=== PATIENT | female | born 1995 ===

== ENCOUNTER 2017-12-14 03:10 | Inpatient (IN) | payer MEDICAID, SELFPAY ==
--- NOTE | 2017-12-14 04:10 | ED PDOC ---
HPI: Abdomen Time Seen by Provider: 12/14/17 03:21 Chief Complaint (Nursing): Abdominal Pain Chief Complaint (Provider): Flank pain History Per: Patient Additional Complaint(s): Pt is a 22 yo female, no PMH, presents to ED ~6 w by dates, LMP 10/25, ambulated to ER for evaluation of tactile fever and left flank pain - onset at 22:00. Pt denies burning on urination, hematuria or increased frequency. Past Medical History Reviewed: Nursing Documentation, Vital Signs Vital Signs: Last Vital Signs Temp 99.8 F H 12/14/17 03:36 Pulse 95 H 12/14/17 03:36 Resp 16 12/14/17 03:36 BP 97/58 L 12/14/17 03:36 Pulse Ox 97 12/14/17 05:00 - Medical History PMH: No Chronic Diseases - Surgical History Surgical History: No Surg Hx - Family History Family History: States: No Known Family Hx - Living Arrangements Living Arrangements: With Family - Social History Current smoker - smoking cessation education provided: No Alcohol: None Drugs: Denies - Home Medications Home Medications: Ambulatory Orders Medication Instructions Recorded No Known Home Med 12/14/17 - Allergies Allergies/Adverse Reactions: Allergies Allergy/AdvReac Type Severity Reaction Status Date / Time No Known Allergies Allergy Verified 12/14/17 03:49 Review of Systems ROS Statement: Except As Marked, All Systems Reviewed And Found Negative Gastrointestinal: Positive for: Abdominal Pain Physical Exam - Reviewed Nursing Documentation Reviewed: Yes Vital Signs Reviewed: Yes - Physical Exam Appears: Positive for: Well, Non-toxic, No Acute Distress Head Exam: Positive for: ATRAUMATIC, NORMAL INSPECTION, NORMOCEPHALIC Skin: Positive for: Normal Color, Warm, DRY Eye Exam: Positive for: EOMI, Normal appearance, PERRL ENT: Positive for: Normal ENT Inspection Neck: Positive for: Normal, Painless ROM Cardiovascular/Chest: Positive for: Regular Rate, Rhythm Respiratory: Positive for: CNT, Normal Breath Sounds Gastrointestinal/Abdominal: Positive for: Normal Exam, Soft, Tenderness (Left flank) Back: Positive for: L CVA Tenderness Extremity: Positive for: Normal ROM Neurologic/Psych: Positive for: Alert, Oriented - Laboratory Results Result Diagrams: 12/14/17 04:15 - ECG O2 Sat by Pulse Oximetry: 97 Medical Decision Making Medical Decision Making: Diagnostics ordered. Dip (+) nites, leuks and blood IV access established and diagnostics ordered. IV Rocephin administered. Case discussed with Hospitalist, Dr. Lazcano, arrangements made for admission Disposition - Clinical Impression Clinical Impression: Pyelonephritis - Disposition Disposition: Routine/Home Disposition Time: 05:20 Condition: STABLE Forms: [facility] ([place])
[2017-12-14 04:44] LABS: BASO % 0.1 % (0.0-2.0); EOS % 0.1 % (0.0-4.0); HEMOGLOBIN 11.9 g/dL (12.0-16.0); LYMPH # 0.7 K/uL (1.0-4.3); LYMPH % 5.3 % (20.0-40.0); MEAN CELL VOLUME 87.6 fl (81.0-99.0); MEAN CORPUSCULAR HEMOGLOBIN 29.3 pg (27.0-31.0); MEAN CORPUSCULAR HGB CONC 33.4 g/dL (33.0-37.0); MEAN PLATELET VOLUME 8.4 fl (7.2-11.7); MONO # 0.9 K/uL (0.0-0.8); MONO % 6.6 % (0.0-10.0); NEUT # 11.6 K/uL (1.8-7.0); NEUT % 87.9 % (50.0-75.0); PLATELET COUNT 204 K/uL (130-400); RBC 4.05 Mil/uL (3.80-5.20); WHITE BLOOD COUNT 13.2 K/uL (4.8-10.8)
[2017-12-14 04:48] LABS: SQUAMOUS EPITHIAL 1 /hpf (0-5); URINE BACTERIA FEW (<OCC); URINE BILIRUBIN NEGATIVE (NEGATIVE); URINE BLOOD SMALL (NEGATIVE); URINE CLARITY CLOUDY (Clear); URINE COLOR YELLOW (YELLOW); URINE GLUCOSE (UA) NEG (Normal); URINE LEUKOCYTE ESTERASE LARGE Leu/uL (Negative); URINE PROTEIN 100 mg/dL (NEGATIVE); URINE UROBILINOGEN 0.2-1.0 mg/dL (0.2-1.0)
--- NOTE | 2017-12-14 06:03 | CP.PCM.HP ---
History of Present Illness - History of Present Illness History of Present Illness: CC: back pain HPI: 22 year old female 6 weeks , no other past medical history presented to the ED with acute moderate back pain associated with tactile fever , no urinary symptoms. Temp 99.8, HR 95, BP 97/58, RR 16 97RA. WBC 13.2, UA + Nitrates, +WBC with +L sided CVA tenderness. Cultures received. She was initiated on Rocephin, renal and transvaginal ultrasounds pending for AM. HD stable, NAD. ROS: per HPI all other systems reviewed and negative PMSH: denies FH: denies SH: denies tobacco etoh ivdu NKDA Present on Admission - Present on Admission Any Indicators Present on Admission: No Past Patient History - Past Social History Alcohol: None Drugs: Denies - PSYCHIATRIC Hx Substance Use: No - SURGICAL HISTORY Hx Surgeries: No - ANESTHESIA Hx Anesthesia: No Meds Allergies/Adverse Reactions: Allergies Allergy/AdvReac Type Severity Reaction Status Date / Time No Known Allergies Allergy Verified 12/14/17 03:49 Physical Exam - Constitutional Additional comments: Vitals Reviewed GEN: WDWN, alert, cooperative HEENT: NCAT, PERRL, EOMI HEART: RRR, +S1S2, NO MRG LUNG: CTAB, NO WRR ABD: soft, NT, ND, No HSM, No masses EXT: normal pedal pulses, normal capillary refill NEURO: awake, alert, no focal deficits SKIN: warm, dry PSYCH: normal mood, normal affect Results - Vital Signs Recent Vital Signs: Last Vital Signs Temp 99.8 F H 12/14/17 03:36 Pulse 95 H 12/14/17 03:36 Resp 16 12/14/17 03:36 BP 97/58 L 12/14/17 03:36 Pulse Ox 97 12/14/17 05:20 - Labs Result Diagrams: 12/14/17 04:15 Labs: Laboratory Results - last 24 hr 12/14/17 12/14/17 04:15 04:15 WBC 13.2 H RBC 4.05 Hgb 11.9 L Hct 35.5 MCV 87.6 MCH 29.3 MCHC 33.4 RDW 14.0 Plt Count 204 MPV 8.4 Neut % (Auto) 87.9 H Lymph % (Auto) 5.3 L Person % (Auto) 6.6 Eos % (Auto) 0.1 Baso % (Auto) 0.1 Neut # (Auto) 11.6 H Lymph # (Auto) 0.7 L Person # (Auto) 0.9 H Eos # (Auto) 0.0 Baso # (Auto) 0.0 Urine Color Yellow Urine Clarity Cloudy Urine pH 6.0 Ur Specific [place] 1.017 Urine Protein 100 Urine Glucose (UA) Neg Urine Ketones 20 Urine Blood Small Urine Nitrate Positive H Urine Bilirubin Negative Urine Urobilinogen 0.2-1.0 Ur Leukocyte Esterase Large Urine RBC (Auto) 11 H Urine Microscopic WBC 365 H Ur Squamous Epith Cells 1 Urine Bacteria Few H Assessment & Plan - Assessment and Plan (Free Text) Plan: 22 year old female 6 weeks , no other past medical history presented to the ED with acute moderate back pain associated with tactile fever , no urinary symptoms. Temp 99.8, HR 95, BP 97/58, RR 16 97RA. WBC 13.2, UA + Nitrates, +WBC with +L sided CVA tenderness. Cultures received. She was initiated on Rocephin, renal and transvaginal ultrasounds pending for AM. HD stable, NAD. Pyelonephritis, UTI - WBC 13k, +UA, +L CVA tenderness - Renal US pending - continue Rocephin 1 gm daily - urine and blood cultures sent - transvaginal US pending for AM - betaquant pending SCDs for DVT ppx
[2017-12-14] MEDS ORDERED: Sodium Chloride 0.9% 1,000 ML IV SCH (06:15)
[2017-12-14 06:28] LABS: ALB/GLOB RATIO 1.4 (1.0-2.1); ALBUMIN 4.3 g/dL (3.5-5.0); ALT/SGPT 12 U/L (9-52); AST/SGOT 22 U/L (14-36); BLOOD UREA NITROGEN 9 mg/dl (7-17); CALCIUM 9.2 mg/dL (8.4-10.2); GFR AFRICAN-AMERICAN > 60; GFR NON-AFRICAN AMERICAN > 60
[2017-12-14 06:52] LABS: BANDS 1 % (0-2); LYMPHOCYTE 6 % (20-50); MONOCYTE 3 % (0-10); NEUTROPHIL 90 % (42-75); PLATELET ESTIMATE NORMAL (NORMAL); TOTAL CELLS COUNTED 100
[2017-12-14 06:53] LABS: ANISOCYTOSIS SLIGHT; HYPOCHROMIC SLIGHT; LARGE PLATELETS PRESENT; TEARDROP CELLS SLIGHT
--- NOTE | 2017-12-14 09:45 | US ---
Date of service: 12/14/2017 PROCEDURE: First trimester ultrasound HISTORY: preg COMPARISON: None available. TECHNIQUE: Standard protocol for this study/examination. FINDINGS: LMP: 10/24/2017 Prior examinations from the current : None TECHNIQUE: Real-time 2D imaging, duplex and color Doppler. FINDINGS: Cardiac activity: Present Rate: 136 BPM Measurements: [place] rump length: 1.2 cm Gestational age based on CRL 7 weeks 3 days. Gestational age 7 weeks 6 days based on gestational sac measurement 2.94 cm Gestational age derived from LMP: 7 weeks 2 days STAS based on LMP: July 31, 2018. STAS based on biometry: July 28, 2018. Gestational concordance documented. Yolk sac identified Uterus: Unremarkable. Cervix: No Cervical abnormalities: Negative examination for cervical dilatation or effacement. Closed cervix. Subchorionic hemorrhage: Small, lower uterine segment. UTERUS: 5 x 8.1 x 10.6 cm. ADNEXA: Right: 1.5 x 1.8 x 2.3 cm. Normal Doppler arterial waveform documented. Left: 1.8 x 2.5 x 2.6 cm. Normal Doppler arterial waveform documented Fluid in the cul-de-sac: None IMPRESSION: Seven weeks 5 days live intrauterine gestation. Gestational concordance documented. Small subchorionic hemorrhage.
--- NOTE | 2017-12-14 09:46 | US ---
Date of service: 12/14/2017 PROCEDURE: Ultrasound of the Kidneys HISTORY: left flank pain COMPARISON: None available. TECHNIQUE: Sonogram of the kidneys. FINDINGS: RIGHT KIDNEY: Measures: 4 x 4.1 x 11.6 cm. Normal in size, contour and echogenicity. No stone, solid mass lesion or hydronephrosis visualized. LEFT KIDNEY: Measures: 5.2 x 6.1 x 9.7 cm. Normal in size, contour and echogenicity. No stone, solid mass lesion or hydronephrosis visualized. OTHER FINDINGS: None. IMPRESSION: Unremarkable renal sonogram.
[2017-12-14] MEDS ORDERED: Sodium Chloride 0.9% 500 ML IV ONE (16:49)
[2017-12-14] MEDS: Sodium Chloride 0.9% 1,000 ML IV SCH (19:22)
[2017-12-15] MEDS: Sodium Chloride 0.9% 1,000 ML IV SCH ×2 (04:41→13:06)
[2017-12-15 06:36] LABS: HEMOGLOBIN 10.1 g/dL (12.0-16.0); MEAN CELL VOLUME 88.5 fl (81.0-99.0); MEAN CORPUSCULAR HEMOGLOBIN 29.7 pg (27.0-31.0); MEAN CORPUSCULAR HGB CONC 33.6 g/dL (33.0-37.0); RBC 3.39 Mil/uL (3.80-5.20); RED CELL DISTRIBUTION WIDTH 14.1 % (11.5-14.5); WHITE BLOOD COUNT 9.8 K/uL (4.8-10.8)
[2017-12-15 07:03] LABS: BLOOD UREA NITROGEN 5 mg/dl (7-17); CALCIUM 8.1 mg/dL (8.4-10.2); GFR AFRICAN-AMERICAN > 60; GFR NON-AFRICAN AMERICAN > 60
--- NOTE | 2017-12-15 08:58 | CP.PCM.PN ---
<Alta Sumner - Last Filed: 12/15/17 16:29> Subjective - Date & Time of Evaluation Date of Evaluation: 12/15/17 Time of Evaluation: 08:16 - Subjective Subjective: Patient seen and examined with Dr. Hector Sumner [place], , PGY-1 Patient awake, laying in bed. She reports having a fever yesterday evening (102F -102.9F). Patient's states her flank pain is getting better, & is voiding without difficulty. Patient currently denies any nausea, vomiting, dysuria, hematuria or vaginal bleeding. Objective - Vital Signs/Intake and Output Vital Signs (last 24 hours): Temp Pulse Resp BP Pulse Ox 98.9 F 71 19 89/50 L 100 12/15/17 07:53 12/15/17 07:53 12/15/17 07:53 12/15/17 07:53 12/15/17 07:53 Intake and Output: 12/15/17 12/15/17 06:59 18:59 Intake Total 1200 Balance 1200 - Medications Medications: Current Medications Acetaminophen (Tylenol 325mg Tab) 650 mg PO Q6 PRN PRN Reason: Pain, moderate (4-7) Last Admin: 12/14/17 16:39 Dose: 650 mg Acetaminophen (Tylenol 325mg Tab) 650 mg PO Q4 PRN PRN Reason: Fever >100.4 F Ceftriaxone Sodium 1 gm/ (Sodium Chloride) 100 mls @ 100 mls/hr IVPB Q12@0500, 1700 DIONY PRN Reason: Protocol Last Admin: 12/15/17 04:41 Dose: 100 mls/hr Sodium Chloride (Sodium Chloride 0.9%) 1,000 mls @ 100 mls/hr IV .Q10H DIONY Stop: 12/15/17 16:50 Last Admin: 12/15/17 04:41 Dose: 100 mls/hr - Labs Labs: 12/15/17 05:40 12/15/17 05:40 - Constitutional Appears: Non-toxic, No Acute Distress - Head Exam Head Exam: ATRAUMATIC - Eye Exam Eye Exam: EOMI - Neck Exam Neck Exam: Full ROM - Respiratory Exam Respiratory Exam: Clear to Ausculation Bilateral - Cardiovascular Exam Cardiovascular Exam: REGULAR RHYTHM, +S1, +S2 - GI/Abdominal Exam Additional comments: soft, nontender, no rigidity - Extremities Exam Extremities Exam: Normal Inspection - Back Exam Additional comments: + Left CVA tenderness - Neurological Exam Neurological Exam: Oriented x3 - Psychiatric Exam Psychiatric exam: Normal Affect, Normal Mood - Skin Skin Exam: Dry, Intact Assessment and Plan - Assessment and Plan (Free Text) Assessment: 22 y/o at 7 weeks 6 days based off of LMP (10/24/2017) who presented to ED with complaints of left lower back pain. At that time, patient was found to have WBC of 13.2, UA with +Nitrates, +WBC with + left sided CVA tenderness. Patient was started on rocephin. Urine culture was + for gram negative rods. Blood culture was negative for bacterial growth. Transvaginal ultrasound performed yesterday showed intrauterine gestation at 7 wk 5 days with a small subchorionic hemorrhage of the lower uterine segment. Renal ultrasound performed yesterday was unremarkable for stone, hydronephrosis or any renal pathology. 1. Severe Sepsis secondary to Pyelonephritis (present on admission) -Continue Rocephin 1 gm Q12 -Urine culture:Prelim report + for gram neg rods; Will follow up cultures -Blood culture: neg for bacterial growth 2. Intrauterine - vitamins 1 tab daily ordered 3. Subchorionic Hemorrhage (seen on ultrasound) -Patient counseled on risk of spontaneous , labor, and placental abruption -Will f/u with OBGYN for care -Repeat pelvic ultrasound in 1-2 weeks to confirm cardiac activity -Continue expectant management 4. DVT prophylaxis - SCD <Waleska Young - Last Filed: 12/15/17 17:07> Objective - Vital Signs/Intake and Output Vital Signs (last 24 hours): Temp Pulse Resp BP Pulse Ox 98.9 F 71 19 89/50 L 100 12/15/17 07:53 12/15/17 07:53 12/15/17 07:53 12/15/17 07:53 12/15/17 07:53 Intake and Output: 12/15/17 12/15/17 06:59 18:59 Intake Total 1200 Balance 1200 - Medications Medications: Current Medications Acetaminophen (Tylenol 325mg Tab) 650 mg PO Q6 PRN PRN Reason: Pain, moderate (4-7) Last Admin: 12/14/17 16:39 Dose: 650 mg Acetaminophen (Tylenol 325mg Tab) 650 mg PO Q4 PRN PRN Reason: Fever >100.4 F Ceftriaxone Sodium 1 gm/ (Sodium Chloride) 100 mls @ 100 mls/hr IVPB Q12@0500, 1700 DIONY PRN Reason: Protocol Last Admin: 12/15/17 04:41 Dose: 100 mls/hr Sodium Chloride (Sodium Chloride 0.9%) 1,000 mls @ 100 mls/hr IV .Q10H DIONY Stop: 12/15/17 16:50 Last Admin: 12/15/17 04:41 Dose: 100 mls/hr Multivit/Folic Acid/Iron () 1 tab PO DAILY DIONY - Labs Labs: 12/15/17 05:40 12/15/17 05:40 Attending/Attestation - Attestation I have personally seen and examined this patient.: Yes I have fully participated in the care of the patient.: Yes I have reviewed all pertinent clinical information, including history, physical exam and plan: Yes
--- NOTE | 2017-12-15 10:42 | CP.PCM.CON ---
History of Present Illness - History of Present Illness History of Present Illness: 22 year old female 6 weeks presented to the ED with acute moderate back pain associated with fever Has left flank pain started on rocephin await cultures will follow PMSH: denies FH: denies SH: denies tobacco etoh ivdu NKDA Review of Systems - Review of Systems All systems: reviewed and no additional remarkable complaints except - Constitutional Constitutional: As Per HPI - EENT Eyes: absent: As Per HPI, Blind Spots, Blurred Vision, Change in Vision, Decreased Night Vision, Diplopia, Discharge, Dry Eye, Exophthalmos, Floaters, Irritation, Itchy Eyes, Loss of Peripheral Vision, Pain, Photophobia, Requires Corrective Lenses, Sees Flashes, Spots in Vision, Tunnel Vision, Other Visual Disturbances, Loss of Vision, Other Ears: absent: As Per HPI, Decreased Hearing, Ear Discharge, Ear Pain, Tinnitus, Abnormal Hearing, Disequilibrium, Dizziness, Other Nose/Mouth/Throat: absent: As Per HPI, Epistaxis, Nasal Congestion, Nasal Discharge, Nasal Obstruction, Nasal Trauma, Nose Pain, Post Nasal Drip, Sinus Pain, Sinus Pressure, Bleeding Gums, Change in Voice, Dental Pain, Dry Mouth, Dysphagia, Halitosis, Hoarsness, Lip Swelling, Mouth Lesions, Mouth Pain, Odynophagia, Sore Throat, Throat Swelling, Tongue Swelling, Facial Pain, Neck Pain, Neck Mass, Other - Breasts Breasts: absent: As Per HPI, Change in Shape, Mass, Pain, Nipple Discharge, Nipple Inversion, Skin Changes, Swelling, Other - Cardiovascular Cardiovascular: absent: As Per HPI, Acrocyanosis, Chest Pain, Chest Pain at Rest , Chest Pain with Activity, Claudication, Diaphoresis, Dyspnea, Dyspnea on Exertion, Edema, Irregular Heart Rhythm, Pain Radiating to Arm/Neck/Jaw, Leg Edema, Leg Ulcers, Lightheadedness, Orthopnea, Palpitations, Paroxysmal Nocturnal Dyspnea, Pedal Edema, Radiating Pain, Rapid Heart Rate, Slow Heart Rate, Syncope, Other - Respiratory Respiratory: absent: As Per HPI, Cough, Dyspnea, Hemoptysis, Dyspnea on Exertion , Wheezing, Snoring, Stridor, Pain on Inspiration, Chest Congestion, Excessive Mucous Production, Change in Mucous Color, Pain with Coughing, Other - Gastrointestinal Gastrointestinal: absent: As Per HPI, Abdominal Pain, Belching, Bloating, Change in Bowel Habits, Change in Stool Character, Coffee Ground Emesis, Constipation, Cramping, Diarrhea, Dyspepsia, Dysphagia, Early Satiety, Excessive Flatus, Fecal Incontinence, Heartburn, Hematemesis, Hematochezia, Loose Stools, Melena, Nausea, Odynophagia, Temesmus, Vomiting, Other - Genitourinary Genitourinary: absent: As Per HPI, Change in Urinary Stream, Difficulty Urinating, Dysuria, Flank Pain, Hematuria, Pyuria, Nocturia, Urinary Incontinence, Urinary Frequency, Urinary Hesitance, Urinary Urgency, Voiding Freq/Small Amts, Freq UTI, Hx Renal/Bladder Calculi, Hx /Renal Surgery, Bladder Distension, Other - Reproductive: Female Reproductive:Female: absent: As Per HPI, Amenorrhea, Amenorrhea/ Control, Currently Menstual, Cycle <21 Days, Cycle >35 Days, Cycle Variable, Menses 1-7 Days, Menses >/= 8 Days, Menses Variable, Cycle > 4 Weeks Between, No Menses for 6 Months, Heavy Menses, Light Menses, Normal Menses, Spotting Between Cycles , S/P Hysterectomy, Menopausal, Post Menopausal, Premenarche, Abnormal Vaginal Bleeding, Dysmenorrhea, Dyspareunia, Genital Lesions, Genital Pruritis, Pelvic Pain, Prolapse Symptoms, Sexual Dysfunction, Vaginal Discharge, Vaginal Dryness , Vaginal Odor, Vaginal Pruritis, Other - Menstruation Menstruation: absent: As Per HPI, Amenorrhea, Amenorrhea/ Control, Currently Menstual, Cycle <21 Days, Cycle >35 Days, Cycle Variable, Menses 1-7 Days, Menses >/= 8 Days, Menses Variable, Cycle > 4 Weeks Between, No Menses for 6 Months, Heavy Menses, Light Menses, Normal Menses, Spotting Between Cycles , S/P Hysterectomy, Menopausal, Post Menopausal, Premenarche, Abnormal Vaginal Bleeding, Dysmenorrhea, Other - Musculoskeletal Musculoskeletal: absent: As Per HPI, Abnormal Gait, Arthralgias, Atrophy, Back Pain, Deformity, Joint Swelling, Limited Range of Motion, Loss of Height, Muscle Cramps, Muscle Weakness, Myalgias, Neck Pain, Numbness, Radiating Pain into Limb, Stiffness, Tingling, Other - Integumentary Integumentary: absent: As Per HPI, Acne, Alopecia, Bleeding Lesions, Change in Hair, Change in Nails, Change in Pigmentation, Changing Lesions, Dry Skin, Erythema, Furuncle, Hirsutism, Lesions, New Lesions, Non-Healing Lesions, Photosensitivity, Pruritus, Rash, Skin Pain, Skin Ulcer, Sores, Striae, Swelling , Unusual Bruising, Wounds, Jaundice, Other - Neurological Neurological: absent: As Per HPI, Abnormal Gait, Abnormal Hearing, Abnormal Movements, Abnormal Speech, Behavioral Changes, Burning Sensations, Confusion, Convulsions, Disequilibrium, Dizziness, Numbness, Focal Weakness, Frequent Falls , Headaches, Lack of Coordination, Loss of Vision, Memory Loss, Paresthesias, Radicular Pain, Restless Legs, Sensory Deficit, Syncope, Tingling, Tremor, Vertigo, Weakness, Other Visual Disturbances, Other - Psychiatric Psychiatric: absent: As Per HPI, Abnormal Sleep Pattern, Anhedonia, Anxiety, Auditory Hallucinations, Behavioral Changes, Change in Appetite, Change in Libido, Confusion, Depression, Difficulty Concentrating, Hallucinations, Homicidal Ideation, Hopelessness, Irritability, Memory Loss, Mood Swings, Panic Attacks, Paranoia, Suicidal Ideation, Visual Hallucinations, Tactile Hallucinations, Other - Endocrine Endocrine: absent: As Per HPI, Change in Body Appearance, Change in Libido, Cold Intolorance, Deepening of Voice, Excessive Sweating, Fatigue, Flushing, Heat Intolorance, Increase in Ring/Shoe/Hat Size, Palpitations, Polydipsia, Polyphagia, Polyuria, Other - Hematologic/Lymphatic Hematologic: absent: As Per HPI, Easy Bleeding, Easy Bruising, Lymphadenopathy, Other Past Patient History - Past Medical History & Family History Past Medical History?: No - Past Social History Smoking Status: Never Smoked - CARDIAC Hx Cardiac Disorders: No - PULMONARY Hx Respiratory Disorders: No - NEUROLOGICAL Hx Neurological Disorder: No - HEENT Hx HEENT Problems: No - RENAL Hx Chronic Kidney Disease: No - ENDOCRINE/METABOLIC Hx Endocrine Disorders: No - HEMATOLOGICAL/ONCOLOGICAL Hx Blood Disorders: No - INTEGUMENTARY Hx Dermatological Problems: No - MUSCULOSKELETAL/RHEUMATOLOGICAL Hx Musculoskeletal Disorders: No Hx Falls: No - GENITOURINARY/GYNECOLOGICAL Hx Genitourinary Disorders: No - PSYCHIATRIC Hx Psychophysiologic Disorder: No Hx Substance Use: No - SURGICAL HISTORY Hx Surgeries: No - ANESTHESIA Hx Anesthesia: No Hx Anesthesia Reactions: No Hx Malignant Hyperthermia: No Has any member of the family had a problem w/ anesthesia?: No Meds Home Medications: Home Medication List Medication Instructions Recorded Confirmed Type Nitrofurantoin Macrocrystals 100 mg PO Q12 #28 cap 12/16/17 Rx [Macrobid] Allergies/Adverse Reactions: Allergies Allergy/AdvReac Type Severity Reaction Status Date / Time No Known Allergies Allergy Verified 12/14/17 03:49 - Medications Medications: Current Medications Acetaminophen (Tylenol 325mg Tab) 650 mg PO Q6 PRN PRN Reason: Pain, moderate (4-7) Last Admin: 12/14/17 16:39 Dose: 650 mg Acetaminophen (Tylenol 325mg Tab) 650 mg PO Q4 PRN PRN Reason: Fever >100.4 F Ceftriaxone Sodium 1 gm/ (Sodium Chloride) 100 mls @ 100 mls/hr IVPB Q12@0500, 1700 DIONY PRN Reason: Protocol Last Admin: 12/15/17 04:41 Dose: 100 mls/hr Sodium Chloride (Sodium Chloride 0.9%) 1,000 mls @ 100 mls/hr IV .Q10H DIONY Stop: 12/15/17 16:50 Last Admin: 12/15/17 04:41 Dose: 100 mls/hr Physical Exam - Constitutional Appears: Non-toxic, Chronically Ill - Head Exam Head Exam: NORMOCEPHALIC - Eye Exam Eye Exam: PERRL - ENT Exam ENT Exam: Mucous Membranes Dry - Neck Exam Neck exam: Negative for: Lymphadenopathy - Respiratory Exam Respiratory Exam: Decreased Breath Sounds - Cardiovascular Exam Cardiovascular Exam: REGULAR RHYTHM - GI/Abdominal Exam GI & Abdominal Exam: Diminished Bowel Sounds, Soft. absent: Tenderness - Rectal Exam Rectal Exam: Deferred - Exam Exam: NORMAL INSPECTION - Extremities Exam Extremities exam: Negative for: pedal edema - Back Exam Back exam: absent: CVA tenderness (L), CVA tenderness (R) - Neurological Exam Neurological exam: Alert, CN II-XII Intact, Oriented x3, Reflexes Normal - Psychiatric Exam Psychiatric exam: Normal Mood - Skin Skin Exam: Petechiae Results - Vital Signs Recent Vital Signs: Last Vital Signs Temp 98.9 F 12/15/17 07:53 Pulse 71 12/15/17 07:53 Resp 19 12/15/17 07:53 BP 89/50 L 12/15/17 07:53 Pulse Ox 100 12/15/17 07:53 - Labs Result Diagrams: 12/15/17 05:40 12/15/17 05:40 Labs: Laboratory Results - last 24 hr 12/15/17 12/15/17 05:40 05:40 WBC 9.8 RBC 3.39 L Hgb 10.1 L Hct 30.0 L MCV 88.5 MCH 29.7 MCHC 33.6 RDW 14.1 Plt Count 168 Sodium 135 Potassium 3.7 Chloride 108 H Carbon Dioxide 22 Anion Gap 9 L BUN 5 L Creatinine 0.6 L Est GFR ( Amer) > 60 Est GFR (Non-Af Amer) > 60 Random Glucose 89 Calcium 8.1 L Assessment & Plan (1) Pyelonephritis Status: Acute - Assessment and Plan (Free Text) Assessment: await cultures cont IV antibiotics pending cultures and sensitivities
[2017-12-15] MEDS: Prenatal Multivit/Folic Acid/Iron Tab PO SCH (12:05)
[2017-12-15 16:12] VITALS: RESP 18
[2017-12-16] MEDS ORDERED: Sodium Chloride 0.9% 1,000 ML IV SCH (04:15)
[2017-12-16 08:23] VITALS: O2SAT 100
--- NOTE | 2017-12-16 08:43 | CP.PCM.PN ---
Subjective - Date & Time of Evaluation Date of Evaluation: 12/16/17 Time of Evaluation: 08:29 Objective - Vital Signs/Intake and Output Vital Signs (last 24 hours): Temp Pulse Resp BP Pulse Ox 98.2 F 64 18 95/53 L 100 12/16/17 08:22 12/16/17 08:22 12/16/17 08:22 12/16/17 08:22 12/16/17 08:22 Intake and Output: 12/16/17 12/16/17 06:59 18:59 Intake Total 1200 Balance 1200 - Medications Medications: Current Medications Acetaminophen (Tylenol 325mg Tab) 650 mg PO Q6 PRN PRN Reason: Pain, moderate (4-7) Last Admin: 12/14/17 16:39 Dose: 650 mg Acetaminophen (Tylenol 325mg Tab) 650 mg PO Q4 PRN PRN Reason: Fever >100.4 F Ceftriaxone Sodium 1 gm/ (Sodium Chloride) 100 mls @ 100 mls/hr IVPB Q12@0500, 1700 DIONY PRN Reason: Protocol Last Admin: 12/16/17 04:22 Dose: 100 mls/hr Sodium Chloride (Sodium Chloride 0.9%) 1,000 mls @ 100 mls/hr IV .Q10H DIONY Stop: 12/16/17 14:14 Last Admin: 12/16/17 04:22 Dose: 100 mls/hr Multivit/Folic Acid/Iron () 1 tab PO DAILY [facility] Last Admin: 12/15/17 12:05 Dose: 1 tab - Labs Labs: 12/15/17 05:40 12/15/17 05:40
[2017-12-16] MEDS: Prenatal Multivit/Folic Acid/Iron Tab PO SCH (09:24)
--- NOTE | 2017-12-16 11:34 | CP.PCM.DIS ---
<Alta Sumner - Last Filed: 12/16/17 13:16> Provider - Provider Date of Admission: 12/15/17 14:11 Attending physician: Dulce Lazcano DO Consults: Dr. Rogers Time Spent in preparation of Discharge (in minutes): 20 Diagnosis - Discharge Diagnosis (1) Sepsis Status: Resolved (2) Pyelonephritis complicating in first trimester Status: Acute (3) Subchorionic hematoma in first trimester Status: Acute Hospital Course - Lab Results Lab Results: Micro Results 12/14/17 04:35 Urine Urine Culture - Final Escherichia Coli 12/14/17 04:35 Blood Blood Culture - Preliminary NO GROWTH AFTER 48 HOURS Most Recent Lab Values WBC 9.8 K/uL (4.8-10.8) 12/15/17 05:40 RBC 3.39 Mil/uL (3.80-5.20) L 12/15/17 05:40 Hgb 10.1 g/dL (12.0-16.0) L 12/15/17 05:40 Hct 30.0 % (34.0-47.0) L 12/15/17 05:40 MCV 88.5 fl (81.0-99.0) 12/15/17 05:40 MCH 29.7 pg (27.0-31.0) 12/15/17 05:40 MCHC 33.6 g/dL (33.0-37.0) 12/15/17 05:40 RDW 14.1 % (11.5-14.5) 12/15/17 05:40 Plt Count 168 K/uL (130-400) 12/15/17 05:40 MPV 8.4 fl (7.2-11.7) 12/14/17 04:15 Neut % (Auto) 87.9 % (50.0-75.0) H 12/14/17 04:15 Lymph % (Auto) 5.3 % (20.0-40.0) L 12/14/17 04:15 Hood % (Auto) 6.6 % (0.0-10.0) 12/14/17 04:15 Eos % (Auto) 0.1 % (0.0-4.0) 12/14/17 04:15 Baso % (Auto) 0.1 % (0.0-2.0) 12/14/17 04:15 Neut # (Auto) 11.6 K/uL (1.8-7.0) H 12/14/17 04:15 Lymph # (Auto) 0.7 K/uL (1.0-4.3) L 12/14/17 04:15 Hood # (Auto) 0.9 K/uL (0.0-0.8) H 12/14/17 04:15 Eos # (Auto) 0.0 K/uL (0.0-0.7) 12/14/17 04:15 Baso # (Auto) 0.0 K/uL (0.0-0.2) 12/14/17 04:15 Neutrophils % (Manual) 90 % (42-75) H 12/14/17 04:15 Band Neutrophils % 1 % (0-2) 12/14/17 04:15 Lymphocytes % (Manual) 6 % (20-50) L 12/14/17 04:15 Monocytes % (Manual) 3 % (0-10) 12/14/17 04:15 Platelet Estimate Normal (NORMAL) 12/14/17 04:15 Large Platelets Present 12/14/17 04:15 Hypochromasia (manual) Slight 12/14/17 04:15 Anisocytosis (manual) Slight 12/14/17 04:15 Tear Drop Cells Slight 12/14/17 04:15 Sodium 135 mmol/l (132-148) 12/15/17 05:40 Potassium 3.7 MMOL/L (3.6-5.0) 12/15/17 05:40 Chloride 108 mmol/L (98-107) H 12/15/17 05:40 Carbon Dioxide 22 mmol/L (22-30) 12/15/17 05:40 Anion Gap 9 (10-20) L 12/15/17 05:40 BUN 5 mg/dl (7-17) L 12/15/17 05:40 Creatinine 0.6 mg/dl (0.7-1.2) L 12/15/17 05:40 Est GFR ( Amer) > 60 12/15/17 05:40 Est GFR (Non-Af Amer) > 60 12/15/17 05:40 Random Glucose 89 mg/dL (65-105) 12/15/17 05:40 Calcium 8.1 mg/dL (8.4-10.2) L 12/15/17 05:40 Total Bilirubin 0.9 mg/dl (0.2-1.3) 12/14/17 04:15 AST 22 U/L (14-36) 12/14/17 04:15 ALT 12 U/L (9-52) 12/14/17 04:15 Alkaline Phosphatase 54 U/L (38-126) 12/14/17 04:15 Total Protein 7.2 G/DL (6.3-8.2) 12/14/17 04:15 Albumin 4.3 g/dL (3.5-5.0) 12/14/17 04:15 Globulin 3.0 gm/dL (2.2-3.9) 12/14/17 04:15 Albumin/Globulin Ratio 1.4 (1.0-2.1) 12/14/17 04:15 Beta HCG, Quant 414154.00 mIU/mL 12/14/17 04:15 Urine Color Yellow (YELLOW) 12/14/17 04:15 Urine Clarity Cloudy (Clear) 12/14/17 04:15 Urine pH 6.0 (5.0-8.0) 12/14/17 04:15 Ur Specific [place] 1.017 (1.003-1.030) 12/14/17 04:15 Urine Protein 100 mg/dL (NEGATIVE) 12/14/17 04:15 Urine Glucose (UA) Neg mg/dL (Normal) 12/14/17 04:15 Urine Ketones 20 mg/dL (NEGATIVE) 12/14/17 04:15 Urine Blood Small (NEGATIVE) 12/14/17 04:15 Urine Nitrate Positive (NEGATIVE) H 12/14/17 04:15 Urine Bilirubin Negative (NEGATIVE) 12/14/17 04:15 Urine Urobilinogen 0.2-1.0 mg/dL (0.2-1.0) 12/14/17 04:15 Ur Leukocyte Esterase Large Patricia/uL (Negative) 12/14/17 04:15 Urine RBC (Auto) 11 /hpf (0-3) H 12/14/17 04:15 Urine Microscopic WBC 365 /hpf (0-5) H 12/14/17 04:15 Ur Squamous Epith Cells 1 /hpf (0-5) 12/14/17 04:15 Urine Bacteria Few (<OCC) H 12/14/17 04:15 HIV 1&2 Antibody Screen Negative (NEGATIVE) 12/15/17 10:52 - Hospital Course Hospital Course: 22 y/o at 8 weeks 0 days based off of LMP (10/24/2017) who presented to ED with complaints of left lower back pain. Patient was found to have WBC of 13.2, UA with +Nitrates, +WBC with + left sided CVA tenderness. Patient was started on rocephin IV 1 gm Q12. Urine culture was + for gram negative rods. Blood culture was negative for bacterial growth. Transvaginal ultrasound was performed and showed intrauterine gestation with a small subchorionic hemorrhage of the lower uterine segment. Renal ultrasound performed was unremarkable for stone, hydronephrosis or any renal pathology. Patient is clinically better today, remains afebrile. Flank pain is minimal. Denies any fever, chills, nausea, vomitting, urinary urgency/frequency or hematuria. 1.Sepsis secondary to Pyelonephritis (present on admission) -Patient for discharge today -Will send home with macrobid 100mg BID PO for 14 days -Urine culture:+ E.coli which is manriquez-sensitive -Blood culture: neg for bacterial growth 2. Intrauterine - Patient will f/u in [facility] for care 3. Subchorionic Hemorrhage (seen on ultrasound) -Patient counseled on risk of spontaneous , labor, and placental abruption -Will f/u with [facility] for care -Repeat pelvic ultrasound in 1-2 weeks to confirm cardiac activity -Continue expectant management Discharge Exam - Head Exam Head Exam: ATRAUMATIC - ENT Exam ENT Exam: Mucous Membranes Moist - Neck Exam Neck exam: Full Rom - Respiratory Exam Respiratory Exam: Clear to PA & Lateral - Cardiovascular Exam Cardiovascular Exam: REGULAR RHYTHM, +S1, +S2 - GI/Abdominal Exam GI & Abdominal Exam: Normal Bowel Sounds, Soft - Extremities Exam Additional comments: calves nontender - Back Exam Additional comments: minimal CVA tenderness appreciated - Neurological Exam Neurological exam: Oriented x3 - Psychiatric Exam Psychiatric exam: Normal Affect, Normal Mood - Skin Skin Exam: Dry, Intact Discharge Plan - Discharge Medications Prescriptions: Nitrofurantoin Macrocrystals [Macrobid] 100 mg PO Q12 #28 cap - Follow Up Plan Condition: STABLE Disposition: HOME/ ROUTINE Instructions: - The Second Month, - The Third Month, Urinary Tract Infection in Women (DC) Additional Instructions: follow up with primary MD/ FINISH REPAIRER 5-7 days. Referrals: [facility] [place] [Outside] <Dulce Lazcano - Last Filed: 12/16/17 15:13> Provider - Provider Date of Admission: 12/15/17 14:11 Attending physician: Dulce Lazcano DO Hospital Course - Lab Results Lab Results: Micro Results 12/14/17 04:35 Urine Urine Culture - Final Escherichia Coli 12/14/17 04:35 Blood Blood Culture - Preliminary NO GROWTH AFTER 48 HOURS Most Recent Lab Values WBC 9.8 K/uL (4.8-10.8) 12/15/17 05:40 RBC 3.39 Mil/uL (3.80-5.20) L 12/15/17 05:40 Hgb 10.1 g/dL (12.0-16.0) L 12/15/17 05:40 Hct 30.0 % (34.0-47.0) L 12/15/17 05:40 MCV 88.5 fl (81.0-99.0) 12/15/17 05:40 MCH 29.7 pg (27.0-31.0) 12/15/17 05:40 MCHC 33.6 g/dL (33.0-37.0) 12/15/17 05:40 RDW 14.1 % (11.5-14.5) 12/15/17 05:40 Plt Count 168 K/uL (130-400) 12/15/17 05:40 MPV 8.4 fl (7.2-11.7) 12/14/17 04:15 Neut % (Auto) 87.9 % (50.0-75.0) H 12/14/17 04:15 Lymph % (Auto) 5.3 % (20.0-40.0) L 12/14/17 04:15 Hood % (Auto) 6.6 % (0.0-10.0) 12/14/17 04:15 Eos % (Auto) 0.1 % (0.0-4.0) 12/14/17 04:15 Baso % (Auto) 0.1 % (0.0-2.0) 12/14/17 04:15 Neut # (Auto) 11.6 K/uL (1.8-7.0) H 12/14/17 04:15 Lymph # (Auto) 0.7 K/uL (1.0-4.3) L 12/14/17 04:15 Hood # (Auto) 0.9 K/uL (0.0-0.8) H 12/14/17 04:15 Eos # (Auto) 0.0 K/uL (0.0-0.7) 12/14/17 04:15 Baso # (Auto) 0.0 K/uL (0.0-0.2) 12/14/17 04:15 Neutrophils % (Manual) 90 % (42-75) H 12/14/17 04:15 Band Neutrophils % 1 % (0-2) 12/14/17 04:15 Lymphocytes % (Manual) 6 % (20-50) L 12/14/17 04:15 Monocytes % (Manual) 3 % (0-10) 12/14/17 04:15 Platelet Estimate Normal (NORMAL) 12/14/17 04:15 Large Platelets Present 12/14/17 04:15 Hypochromasia (manual) Slight 12/14/17 04:15 Anisocytosis (manual) Slight 12/14/17 04:15 Tear Drop Cells Slight 12/14/17 04:15 Sodium 135 mmol/l (132-148) 12/15/17 05:40 Potassium 3.7 MMOL/L (3.6-5.0) 12/15/17 05:40 Chloride 108 mmol/L (98-107) H 12/15/17 05:40 Carbon Dioxide 22 mmol/L (22-30) 12/15/17 05:40 Anion Gap 9 (10-20) L 12/15/17 05:40 BUN 5 mg/dl (7-17) L 12/15/17 05:40 Creatinine 0.6 mg/dl (0.7-1.2) L 12/15/17 05:40 Est GFR ( Amer) > 60 12/15/17 05:40 Est GFR (Non-Af Amer) > 60 12/15/17 05:40 Random Glucose 89 mg/dL (65-105) 12/15/17 05:40 Calcium 8.1 mg/dL (8.4-10.2) L 12/15/17 05:40 Total Bilirubin 0.9 mg/dl (0.2-1.3) 12/14/17 04:15 AST 22 U/L (14-36) 12/14/17 04:15 ALT 12 U/L (9-52) 12/14/17 04:15 Alkaline Phosphatase 54 U/L (38-126) 12/14/17 04:15 Total Protein 7.2 G/DL (6.3-8.2) 12/14/17 04:15 Albumin 4.3 g/dL (3.5-5.0) 12/14/17 04:15 Globulin 3.0 gm/dL (2.2-3.9) 12/14/17 04:15 Albumin/Globulin Ratio 1.4 (1.0-2.1) 12/14/17 04:15 Beta HCG, Quant 010427.00 mIU/mL 12/14/17 04:15 Urine Color Yellow (YELLOW) 12/14/17 04:15 Urine Clarity Cloudy (Clear) 12/14/17 04:15 Urine pH 6.0 (5.0-8.0) 12/14/17 04:15 Ur Specific [place] 1.017 (1.003-1.030) 12/14/17 04:15 Urine Protein 100 mg/dL (NEGATIVE) 12/14/17 04:15 Urine Glucose (UA) Neg mg/dL (Normal) 12/14/17 04:15 Urine Ketones 20 mg/dL (NEGATIVE) 12/14/17 04:15 Urine Blood Small (NEGATIVE) 12/14/17 04:15 Urine Nitrate Positive (NEGATIVE) H 12/14/17 04:15 Urine Bilirubin Negative (NEGATIVE) 12/14/17 04:15 Urine Urobilinogen 0.2-1.0 mg/dL (0.2-1.0) 12/14/17 04:15 Ur Leukocyte Esterase Large Patricia/uL (Negative) 12/14/17 04:15 Urine RBC (Auto) 11 /hpf (0-3) H 12/14/17 04:15 Urine Microscopic WBC 365 /hpf (0-5) H 12/14/17 04:15 Ur Squamous Epith Cells 1 /hpf (0-5) 12/14/17 04:15 Urine Bacteria Few (<OCC) H 12/14/17 04:15 HIV 1&2 Antibody Screen Negative (NEGATIVE) 12/15/17 10:52 Attending/Attestation - Attestation I have personally seen and examined this patient.: Yes I have fully participated in the care of the patient.: Yes I have reviewed all pertinent clinical information, including history, physical exam and plan: Yes Notes (Text): 12/16/17 15:13 seen examined and discussed with resident Dr. Castanon. Agree with findings and plan as above.
--- NOTE | 2017-12-16 12:07 | CP.PCM.PN ---
Subjective - Date & Time of Evaluation Date of Evaluation: 12/16/17 Time of Evaluation: 08:00 - Subjective Subjective: improving afeb nad Objective - Vital Signs/Intake and Output Vital Signs (last 24 hours): Temp Pulse Resp BP Pulse Ox 98.2 F 64 18 95/53 L 100 12/16/17 08:22 12/16/17 08:22 12/16/17 08:22 12/16/17 08:22 12/16/17 08:22 Intake and Output: 12/16/17 12/16/17 06:59 18:59 Intake Total 1200 Balance 1200 - Medications Medications: Current Medications Acetaminophen (Tylenol 325mg Tab) 650 mg PO Q6 PRN PRN Reason: Pain, moderate (4-7) Last Admin: 12/14/17 16:39 Dose: 650 mg Acetaminophen (Tylenol 325mg Tab) 650 mg PO Q4 PRN PRN Reason: Fever >100.4 F Ceftriaxone Sodium 1 gm/ (Sodium Chloride) 100 mls @ 100 mls/hr IVPB Q12@0500, 1700 DIONY PRN Reason: Protocol Last Admin: 12/16/17 04:22 Dose: 100 mls/hr Sodium Chloride (Sodium Chloride 0.9%) 1,000 mls @ 100 mls/hr IV .Q10H DIONY Stop: 12/16/17 14:14 Last Admin: 12/16/17 04:22 Dose: 100 mls/hr Multivit/Folic Acid/Iron () 1 tab PO DAILY DIONY Last Admin: 12/16/17 09:24 Dose: 1 tab - Labs Labs: 12/15/17 05:40 12/15/17 05:40 - Constitutional Appears: Non-toxic, Chronically Ill - Head Exam Head Exam: NORMOCEPHALIC - Eye Exam Eye Exam: PERRL - ENT Exam ENT Exam: Mucous Membranes Dry - Neck Exam Neck Exam: absent: Lymphadenopathy - Respiratory Exam Respiratory Exam: Decreased Breath Sounds - Cardiovascular Exam Cardiovascular Exam: REGULAR RHYTHM - GI/Abdominal Exam GI & Abdominal Exam: Distended, Soft - Rectal Exam Rectal Exam: Deferred - Exam Exam: NORMAL INSPECTION - Extremities Exam Extremities Exam: absent: Pedal Edema - Back Exam Back Exam: absent: CVA tenderness (L), CVA tenderness (R) Assessment and Plan (1) Pyelonephritis Status: Acute (2) Pyelonephritis complicating in first trimester Status: Acute - Assessment and Plan (Free Text) Assessment: cont oral antibviotics for 14 days with PHYSIOLOGIST and follow up
[2017-12-16 16:37] VITALS: BP 94/51; PULSE 80; TEMP 98.8
== END 2017-12-16 16:40 | disposition home or self-care (01) | DRG 781 ==
LOC: H.ER 03:10 → H.ERHOLD 05:49 → H.MEDSURG1 09:25 → OBSVTOIN 12-15 14:11
PROVIDERS: ADMIT Student in an Organized Health Care Education/Training Program; ATTEND Student in an Organized Health Care Education/Training Program
DX: O98.811 Other maternal infectious and parasitic diseases complicating pregnancy, first trimester (principal); A41.9 Sepsis, unspecified organism; R65.20 Severe sepsis without septic shock; N10 Acute pyelonephritis; O23.01 Infections of kidney in pregnancy, first trimester; B96.20 Unspecified Escherichia coli [E. coli] as the cause of diseases classified elsewhere; O20.8 Other hemorrhage in early pregnancy; Z3A.08 8 weeks gestation of pregnancy